=== PATIENT | female | born 1975 | race African-American/Black ===

== ENCOUNTER 2017-10-15 11:50 | Emergency (ER) | payer BC ==
[~2017-10-15] VITALS: Ht 165.1 cm; Wt 77.1 kg
--- NOTE | 2017-10-15 11:50 | NUR ---
BIB[facility] 89 FROM HOME C/O ON/OFF SUPRAPUBIC PAIN S/P EGG RETRIEVAL AT [facility]. NAD NOTED. 710 PAIN AT THIS TIME. VSS. PENDING MD ACUÑA.
[2017-10-15] MEDS ORDERED: ONDANSETRON HCL/PF 4 MG/2 ML VIAL IVP ONE (12:30)
[2017-10-15] MEDS ORDERED: IV NS 0.9% 1,000 ML BAG IV ONE (12:30)
[2017-10-15] MEDS ORDERED: HYDROMORPHONE INJ 2 MG/ML DISP.SYRIN IV ONE (12:30)
[2017-10-15] MEDS ORDERED: FENTANYL PF 100MCG/2ML AMPUL ONE (12:38)
[2017-10-15] MEDS ORDERED: ONDANSETRON HCL/PF 4 MG/2 ML VIAL ONE (12:38)
[2017-10-15] MEDS ORDERED: FENTANYL PF 100MCG/2ML AMPUL IV ONE (13:00)
--- NOTE | 2017-10-15 13:55 | NUR ---
IV removed. Catheter intact and site benign. Pressure and 4x4 applied to site. No bleeding noted.
[2017-10-15 15:38] VITALS: BP 104/68
== END 2017-10-15 15:38 | disposition home or self-care (01) ==
LOC: ER 11:58
DX: G89.18 Other acute postprocedural pain (principal); E78.00 Pure hypercholesterolemia, unspecified; Z98.890 Other specified postprocedural states
CPT/HCPCS: 96361; 96374; 96375; 99284; A4606 ×3; J2405; J3010; J7030; Z7610 ×3

== ENCOUNTER 2025-09-20 19:07 | Emergency (ER) | payer BC ==
[~2025-09-20] VITALS: Ht 172.7 cm; Wt 77.1 kg
[2025-09-20 20:08] VITALS: TEMP 98.5
[2025-09-20 21:15] LABS: PLATELET COUNT (AUTO) 306 K/uL (150-450); RED BLOOD CELL COUNT(AUTO) 4.81 MIL/uL (4.0-5.2); RED CELL DISTRIBUTION WIDTH 14.3 % (11.5-15.0); WHITE BLOOD COUNT (AUTO) 8.6 K/uL (4.3-11.0)
[2025-09-20 21:22] LABS: CALCIUM, SERUM 9.6 mg/dL (8.5-10.1); CREATININE 1.0 mg/dL (0.6-1.3); SODIUM SERUM 140.0 mmol/L (136-145); UREA NITROGEN, BLOOD 13.0 mg/dL (7-18)
[2025-09-20 22:23] VITALS: BP 135/85; O2SAT 97
[2025-09-20 23:31] LABS: APPEARANCE,URINE SLIGHTLY CLOUDY (CLEAR); BLOOD, URINE 3+ Ery/uL (NEGATIVE); LEUKOCYTE ESTERASE ,URINE NEGATIVE (NEGATIVE); NITRITE, URINE NEGATIVE (NEGATIVE); UGLUCOSE NEGATIVE (NEGATIVE)
[2025-09-20 23:39] LABS: ADD URINE CULTURE NO; SQUAMOUS EPITHELIAL CELL,UR Few /HPF (None Seen)
== END 2025-09-20 22:20 | disposition home or self-care (01) ==
LOC: ER 19:17
DX: O20.9 Hemorrhage in early pregnancy, unspecified (principal); D25.9 Leiomyoma of uterus, unspecified; E78.00 Pure hypercholesterolemia, unspecified
CPT/HCPCS: 36415; 76856-TC; 80048-TC; 81001; 85025-TC